=== PATIENT | male | born 1955 | race Caucasian/White ===

== ENCOUNTER 2017-08-08 07:50 | Day surgery (SDC) | payer OTHER ==
[~2017-08-08 07:50] MED LIST: Bupivacaine 25%/EPINEPHrine/PF 30 ML ONE; Dexamethasone/Tobramycin 0.1-0.3% Ophth Oint 3.5 GM Tube ONE; Tetracaine 0.5% Ophth Soln 15 ML Bottle ONE
[2017-08-08] MEDS ORDERED: Dexamethasone/Tobramycin 0.1-0.3% Ophth Oint 3.5 GM Tube EYEBOTH SCH (08:00)
[2017-08-08] MEDS ORDERED: Bupivacaine 0.25%/EPINEPHrine 1:200,000 10 ML SDV INJECT ONE (08:00)
[2017-08-08] MEDS ORDERED: ceFAZolin 2 GM in Premix Bag 1 BAG IV ONE (08:00)
[2017-08-08] MEDS ORDERED: Lactated Ringers 1,000 ML IV SCH (08:00)
--- NOTE | 2017-08-08 08:29 | PCM.PREANE ---
Preanesthetic Assessment - Anesthesia/Transfusion/Family Hx Anesthesia History: No Prior Anesthesia Family History of Anesthesia Reaction: No Transfusion History: No Prior Transfusion(s) Intubation History: Unknown - Review of Systems General: No Symptoms Pulmonary: No Symptoms Cardiovascular: No Symptoms Gastrointestinal: No Symptoms Neurological: No Symptoms Other: Reports: None - Physical Assessment O2 Sat by Pulse Oximetry: 93 Respiratory Rate: 18 Vital Signs: Last Vital Signs Temp 36.8 C 08/08/17 08:12 Pulse 71 08/08/17 08:12 Resp 18 08/08/17 08:12 BP 155/99 H 08/08/17 08:12 Pulse Ox 93 L 08/08/17 08:12 Height: 1.8 m Weight: 136.078 kg ASA Class: 3 Mental Status: Alert & Oriented x3 Airway Class: Mallampati = 3 Dentition: Reports: Normal Dentition Thyro-Mental Finger Breadths: 3 Mouth Opening Finger Breadths: 2 ROM/Head Extension: Full Lungs: Clear to Auscultation, Normal Respiratory Effort Cardiovascular: Regular Rate, Regular Rhythm - Allergies Allergies/Adverse Reactions: Allergies Allergy/AdvReac Type Severity Reaction Status Date / Time No Known Allergies Allergy Verified 08/03/17 16:05 - Blood Blood Available: No - Anesthesia Plan Pre-Op Medication Ordered: None - Acknowledgements Anesthesia Type Planned: MAC Pt an Appropriate Candidate for the Planned Anesthesia: Yes Alternatives and Risks of Anesthesia Discussed w Pt/Guardian: Yes Pt/Guardian Understands and Agrees with Anesthesia Plan: Yes PreAnesthesia Questionnaire Cardiovascular History: Reports: Hypertension Endocrine/Metabolic History: Reports: Obesity/BMI 30+ (bmi 41.8) - Past Surgical History GI Surgical History: Reports: Colonoscopy - SUBSTANCE USE Smoking Status *Q: Never Smoker Recreational Drug Use History: No - HOME MEDS Home Medications: Home Meds Losartan [Cozaar] 50 mg PO DAILY 08/06/17 [History] amLODIPine Besylate [Amlodipine Besylate] 5 mg PO DAILY 08/06/17 [History] - CURRENT (IN HOUSE) MEDS Current Meds: Current Medications Cefazolin Sodium/Dextrose 2 gm (/ Premix) 50 mls @ 100 mls/hr IV ONETIME ONE Stop: 08/08/17 08:29 Lactated Ringer's (Ringers, Lactated) 1,000 mls @ 500 mls/hr IV .BOLUS [place] Last Admin: 08/08/17 08:13 Dose: 500 mls/hr Tobramycin/Dexamethasone (Tobradex Ophth Oint) 1 gm EYEBOTH Q4H [place] Discontinued Medications Bupivacaine HCl/Epinephrine Bitart (Marcaine 0.25%/Epinephrine 1:200,000) 10 ml INJECT ONETIME ONE Stop: 08/08/17 08:01 Bupivacaine HCl/Epinephrine Bitart (Sensorc Mpf 0.25%-Epi [id number]) Confirm Administered Dose 30 mls @ as directed .ROUTE .STK-MED ONE Stop: 08/08/17 07:28 Tetracaine (Tetracaine 0.5% Ophth Soln) Confirm Administered Dose 15 ml .ROUTE .STK-MED ONE Stop: 08/08/17 07:28 Tobramycin/Dexamethasone (Tobradex Ophth Oint) Confirm Administered Dose 3.5 gm .ROUTE .STK-MED ONE Stop: 08/08/17 07:29
[2017-08-08] MEDS ORDERED: Propofol 200 MG/20 ML SDV ONE ×4 (08:40→11:37)
[2017-08-08] MEDS ORDERED: Sodium Chloride 0.9% 20 ML ONE (08:54)
[2017-08-08] MEDS ORDERED: ceFAZolin 1 GM Vial ONE (08:54)
--- NOTE | 2017-08-08 11:13 | PCM.POSTAN ---
POST ANESTHESIA ASSESSMENT - MENTAL STATUS Mental Status: Alert - RESPIRATORY Respiratory Status: Respiratory Rate WNL, Airway Patent, O2 Saturation Stable - CARDIOVASCULAR CV Status: Pulse Rate WNL, Blood Pressure Stable - GASTROINTESTINAL GI Status: No Symptoms - PAIN Pain Score: 0 - POST OP HYDRATION Hydration Status: Adequate & Stable - OBSERVATIONS Free Text/Narrative:: no anesthesia problems
[2017-08-08] MEDS ORDERED: Acetaminophen/HYDROcodone 325-5 MG Tab PO PRN (11:20)
--- NOTE | 2017-08-08 11:58 | PCM48HPAN ---
Post Anesthesia Note - EVALUATION WITHIN 48HRS OF ANESTHETIC Vital Signs in Normal Range: Yes Patient Participated in Evaluation: Yes Respiratory Function Stable: Yes Airway Patent: Yes Cardiovascular Function Stable: Yes Hydration Status Stable: Yes Pain Control Satisfactory: Yes Nausea and Vomiting Control Satisfactory: Yes Mental Status Recovered: Yes Resp Rate: 12 - COMMENTS/OBSERVATIONS Free Text/Narrative:: no anesthesia problems
--- NOTE | 2017-08-08 14:19 | PCM.OPNOTE ---
- General Post-Op/Procedure Note Date of Surgery/Procedure: 08/08/17 Operative Procedure(s): levator repair - external approach bilateral eyelids Pre Op Diagnosis: blepharoptosis bilateral - senile dehiscence Post-Op Diagnosis: Same Anesthesia Technique: Local, MAC Primary Surgeon: Marva Chavez Director [employer]: Fay Baez Complications: None Condition: Good Free Text/Narrative:: Intake & Output 08/07/17 08/08/17 08/08/17 23:59 07:59 15:59 Intake Total 1200 Balance 1200 [id number]
--- NOTE | 2017-08-08 20:01 | OR ---
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 PROCEDURE: Bilateral upper lid levator advancement, external approach, for treatment of blepharoptosis. HEEL BUFFER: SHARON Aparicio. Reason for senior administrative assistant was prepping and draping and closure assistance. ANESTHESIA: Local MAC. INDICATIONS: Mr. Thorpe is a 61-year-old gentleman with significant visual compromise as demonstrated on visual field exam and photos. Prior authorization was obtained for the procedure. We proceeded with risks and benefits discussion. He would like to proceed. Risks were including, but not limited to, bleeding, infection, damage to underlying or overlying structures, possible need for future interventions, and possible scarring. PROCEDURE IN DETAIL: After informed consent was obtained and placed on the chart, the patient was brought to the operating theater and laid in a supine position. After adequate local MAC anesthesia, the area was prepped and draped and a time-out was completed confirming side and site. The area was marked appropriately for 1.5 cm excision of skin. Once adequately marked, the area was anesthetized with 0.25% Marcaine with epinephrine in a field block. Once adequate anesthesia was obtained, the area was excised and the underlying musculature was cauterized for hemostasis. Dissection was then carried through the orbicularis muscle down to the levator aponeurosis and the tarsus was located. Dissection was then carried up and isolation of the levator aponeurosis was completed. 1 cm was estimated on both sides for advancement, and this was advanced using a 4-0 Prolene stitch in an interrupted fashion to repair and advance the levator. Once adequately secured in place with 5 to 6 sutures per side, the area was meticulously hemostased, and the septal layer was closed using a running 5-0 Monocryl and the muscle layer was also closed in a same fashion. Once adequately closed, the deep dermis was closed with a single 5-0 Monocryl stitch and a running 6-0 Prolene for the skin. The ends were Steri- Stripped in place. The patient tolerated this well, and all counts and needles were correct at the end of the case. During the intra-ocular procedure, the corneal protector was placed on both eyes using first tetracaine drops and then TobraDex ointment to lubricate the area to prevent corneal irritation. The corneas were checked at the end of the case, and the corneal protector was removed after completion of each eye. FOLLOWUP INSTRUCTIONS: The patient will see us in 1 week or sooner if any problems, questions, or concerns. He was sent with TobraDex ointment for additional home use. HEGGTHE / MODL /[id number]
--- NOTE | 2017-08-30 17:28 | PCM.SN ---
- Free Text/Narrative Note: Procedure as dictated was completed bilaterally - bilateral levator advancement. [facility] [id number]
== END 2017-08-08 11:55 | disposition home or self-care (01) ==
LOC: MW.SDS 07:50
PROVIDERS: ATTEND Plastic Surgery
DX: H02.403 Unspecified ptosis of bilateral eyelids (principal); H02.834 Dermatochalasis of left upper eyelid; H02.831 Dermatochalasis of right upper eyelid; I10 Essential (primary) hypertension; E66.9 Obesity, unspecified; Z68.41 Body mass index [BMI] 40.0-44.9, adult; Z79.899 Other long term (current) drug therapy; Z98.890 Other specified postprocedural states
CPT/HCPCS: 67904; A9270; J0690; J7120; 00103; J2704